=== PATIENT | female | born 1945 | race Caucasian/White ===

== ENCOUNTER 2020-12-07 08:56 | Emergency (ER) | payer MEDICARE, OTHER, SELFPAY ==
--- NOTE | 2020-12-07 08:56 | PC.NURSE ---
Pt to ed per ems. Per ems report they were called to [facility] for pt with no pulse and not breathing. long term reported to ems that patient was at baseline at 0700. At 0830 long-term staff found patient pulseless. This nurse spoke with KHURRAM Francois at [facility] who states cpr was initiated at 0830. Ems reports giving patient x2 epi in route. Ems stated pt remained in asystole while in route. Pt arrived at 0856. Cpr continued, pt was asystole on the monitor, pulse check was performed with no pulse. At 0901 physician called off all efforts and pronounced . 09-Spoke with Melissa peters [facility] who stated pt was not being considered for organ donation. [id number] spoke with Priscila at [facility]. She stated pt was admitted at [facility] for COVID pnuemonia and cdiff from 11/22/20-12/05/20. long term stated she was admitted to [facility] on 12/05/20 for therapy. She stated on 12/06/20 pt was c/o soa but remained 94% on her baseline 2L. Today, pt was given her breakfast 0700 with patient at baseline. At 0830 long-term staff found pt pulseless. Cpr was initiated and ems was called.
--- NOTE | 2020-12-07 09:03 | HMH.EDGENADL ---
ED Disposition Clinical Impression: Cardiac arrest, on arrival at hospital Disposition: Condition on Discharge: Referrals: Sohan Fan MD [Primary Care Provider] - - Critical Care Critical Care Time: No Attestation: On , the high probability of a clinically significant, sudden or life threatening deterioration of the following system(s) required my full and direct attention, intervention and personal management. The time I documented below is in addition to time spent performing reported procedures but includes the following listed in this critical care notation. Probable Cause of : Cardiac arrest Medical Decision Making - Leonard Inquiry Pt receiving controlled substance: No Medical Decision Narrative: The patient has now been in cardiac arrest for over 30 minutes with documented asystole since EMS arrival. Remains in asystole on 2 different leads here. Further resuscitative efforts not indicated. Patient was pronounced at 9:01 AM. General Adult HPI - General Stated complaint: code Time Seen by Provider: 12/07/20 09:01 - History of Present Illness HPI narrative: Brought in by ambulance from [facility] [place] in cardiac arrest. Patient was found by nursing staff at 8:28 AM pulseless and apneic. She had reportedly been eating breakfast when last seen at 7am. EMS found her in asystole. CPR started. Bag mask ventilations performed. ACLS performed in route without change in her condition or rhythm. She arrives here having been in cardiac arrest for approximately 30 minutes. [facility] History - Hepatitis A Screen Attestation statement:: This patient has been screened for Hepatitis A risk factors. 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
[2020-12-07 09:38] VITALS: BMI 26.6
--- NOTE | 2020-12-07 10:11 | PC.NURSE ---
Family presents to the ED. Physician spoke with family about patient condition. Post mortem care provided.
[2020-12-07 14:53] VITALS: BP 00/00; PULSE 0; RESP 0; TEMP -17.7; TEMP 0
== END 2020-12-07 14:55 | disposition expired ==
PROVIDERS: Emergency Provider Emergency Medicine; PCP Family Medicine
DX: I46.9 Cardiac arrest, cause unspecified (principal)
CPT/HCPCS: 99282